=== PATIENT | female | born 1960 | race Two or more races ===

== ENCOUNTER 2016-12-21 11:35 | Day surgery (SDC) | payer OTHER ==
[~2016-12-21] VITALS: Ht 154.9 cm; Wt 60.2 kg
[2016-12-21] MEDS ORDERED: anxiety med (12:39)
[2016-12-21] MEDS ORDERED: pain med (12:39)
[2016-12-21] MEDS ORDERED: cholesterol (12:39)
[2016-12-21] MEDS ORDERED: diabetes med (12:39)
[2016-12-21] MEDS ORDERED: [UNRECOGNIZED DRUG - OTHER] (12:39)
[2016-12-21] MEDS ORDERED: P MEDS (12:39)
[2016-12-21 12:41] VITALS: Ht 154.9 cm; Wt 60.2 kg
[2016-12-21 13:27] VITALS: BP 98/56; PULSE 73; RESP 20
[2016-12-21] MEDS ORDERED: FENTAnyl 50 MCG/ML VIAL ONE (13:46)
[2016-12-21] MEDS ORDERED: MIDAZOLAM 1 MG/ML 2 ML INJ ONE ×2 (13:46)
[2016-12-21 14:20] VITALS: BP 82/50; PULSE 69; RESP 19
--- NOTE | 2016-12-21 14:32 | GILP ---
DATE OF PROCEDURE: 12/21/2016 NAME OF PROCEDURE: Colonoscopy. SURGEON: Stephany Turner MD PREOPERATIVE DIAGNOSIS: Screening colonoscopy. POSTOPERATIVE DIAGNOSES 1. Colonoscopy all the way to the cecum. 2. Extensive diverticulosis of the sigmoid colon. 3. Angiodysplastic lesions in the right colon. 4. Internal hemorrhoids. 5. No colon neoplasm was identified. INDICATION FOR THE PROCEDURE: Ms. Vero Flynn is a 56-year-old female patient who was sc heduled for screening colonoscopy. The procedure and possible complications are well explained to the patient. The patient understood and consented to the procedure. DESCRIPTION OF PROCEDURE: Under the influence of fentanyl and Versed, the colonoscope was carefully introduced in the rectum and under direct vision, it was advanced all the way to the cecum. FINDINGS: The patient had extensive diverticulosis of the sigmoid colon. She had angiodysplastic l esions in the right colon. She had internal hemorrhoids. No colon neoplasm was identified. She tolerated the procedures very well and there was no complication from the procedures. At the en d of the procedures, she was awake with stable vital signs and she was discharged home to the care o f her family. IMPRESSION: Please see postoperative diagnosis. PLAN: Next screening colonoscopy in 10 years. The patient was advised to eat high-fiber diet. Dictated By: STEPHANY MUÑOZ/MINDI Conf#: [id number] DID#: [id number] CC: STEPHANY TURNER MD;*EndCC*
== END 2016-12-21 16:16 | disposition home or self-care (01) ==
LOC: GIL 11:35
PROVIDERS: ATTEND Internal Medicine Gastroenterology
DX: Z12.11 Encounter for screening for malignant neoplasm of colon (principal); K57.90 Diverticulosis of intestine, part unspecified, without perforation or abscess without bleeding; K64.8 Other hemorrhoids; E11.9 Type 2 diabetes mellitus without complications; I10 Essential (primary) hypertension
CPT/HCPCS: 45378; 82962; J2250; J3010; Z7610